=== PATIENT | male | born 1935 | race African-American/Black ===

== ENCOUNTER 2017-02-23 10:32 | Emergency (ER) | payer OTHER ==
[2017-02-23 10:42] VITALS: BP 136/66; PULSE 57; TEMP 98.7; BMI 29.0
--- NOTE | 2017-02-23 10:50 | PDOC ---
History of Present Illness - General Chief Complaint: Hematuria Stated Complaint: HEMATURIA Time Seen by Provider: 02/23/17 10:36 History Source: Patient Exam Limitations: No Limitations - History of Present Illness Travel History: No Initial Comments: 02/23/17 11:10 82y M hx of afib on coumadin, CAD s/p stents on plavix, htn, hl, presents with hematuria. pt noticed some pink urine last night, and today endorses reddish urine. pt states he 'pinched' his penis last night after urinating prior to seeing the pink urine. pt endorses some burning on urination. pt last had INR check 2 weeks ago and was2.3 no recent changes in his coumadin recently on ciprodex for ear infection but nothing PO. n oother bruisling/bleeding noted no rectal bleeding pt denies any cp, palpitations, lightheadeness, no history of instrumentation/gu problems Past History - Past Medical History Allergies/Adverse Reactions: Allergies Allergy/AdvReac Type Severity Reaction Status Date / Time VERÓNICA Inhibitors Allergy Swelling Verified 02/23/17 10:38 fish derived Allergy Itching Verified 02/23/17 10:38 shellfish derived Allergy Itching Verified 02/23/17 10:38 Home Medications: Ambulatory Orders Amiodarone HCl [Cordarone -] 200 mg PO DAILY 09/29/14 Atorvastatin Ca [Lipitor -] 40 mg PO HS 09/29/14 Clopidogrel Bisulfate [Plavix -] 75 mg PO DAILY #30 tablet 09/29/14 Isosorbide Mononitrate [Imdur] 60 mg PO DAILY 09/29/14 Metoprolol Tartrate 25 mg PO DAILY 09/29/14 Nitroglycerin Sublingual [Nitrostat -] 0.4 mg SL PRN 09/29/14 Ranolazine [Ranexa] 500 mg PO BID 09/29/14 Warfarin Sodium 2.5 mg PO HS 09/29/14 Cardiac Disorders: Yes (A-FIB, CAD) HTN: Yes Hypercholesterolemia: Yes - Psycho/Social/Smoking Cessation Hx Anxiety: No Suicidal Ideation: No Smoking History: Never smoked Have you smoked in the past 12 months: No Hx Alcohol Use: No Drug/Substance Use Hx: No Substance Use Type: None Review of Systems - Review of Systems Able to Perform ROS?: Yes Comments:: 02/23/17 11:23 Constitutional - no reported Fever, Chills, HEENT: no reported vision changes, sore throat Respiratory: no reported cough, sob, hemoptysis Cardiac: no reported chest pain, palpitations, light headedness, leg swelling Abd/GI: no reported abd pain, nausea, vomiting, blood per rectum, melena, diarrhea : +hematuria, dysuria no reported frequency, discharge Musculskelatal - no reported back pain, joint swelling skin - no reported bruising, erythema, rash neurological: no reported headache, numbness, focal weakness, tingling, ataxia, hematologic: no reported anemia, easy bruising, easy bleeding *Physical Exam - Vital Signs Last Vital Signs Temp Pulse Resp BP Pulse Ox 98.7 F 57 L 18 136/66 98 02/23/17 10:32 02/23/17 10:32 02/23/17 10:32 02/23/17 10:32 02/23/17 10:32 - Physical Exam Comments: 02/23/17 11:23 GENERAL: The patient is awake, alert, and fully oriented, Nontoxic - in no acute distress. HEAD: Normocephalic, atraumatic. EYES: extraocular movements intact, sclera anicteric, conjunctiva clear. ENT: Normal voice, Moist mucous membranes. NECK: Normal range of motion, supple LUNGS: Breath sounds equal, clear to auscultation bilaterally. No wheezes, no rhonchi, no rales. HEART: Regular rate and rhythm, normal S1 and S2 without murmur, rub or gallop. ABDOMEN: Soft, nontender, normoactive bowel sounds. No guarding, no rebound. . No CVA tenderness : uncircumcised penis, no lesions or sources of bleeding present, no blood visible EXTREMITIES: Normal range of motion, no edema. No clubbing or cyanosis. No cords, erythema, or tenderness. NEUROLOGICAL: No facial assymetry, Normal speech, PSYCH: Normal mood, normal affect. SKIN: Warm, Dry, normal turgor, Medical Decision Making - Medical Decision Making 02/23/17 12:31 will r/o UTI will ck INR for suprathetic INR *DC/Admit/Observation/Transfer Diagnosis at time of Disposition: Hematuria - Discharge Dispostion Disposition: HOME Condition at time of disposition: Improved Admit: No - Referrals Referrals: Alexei Rogers MD [Staff Physician] - - Patient Instructions Printed Discharge Instructions: DI for Hematuria Additional Instructions: Return to the emergency department immediately with ANY new, persistent or worsening symptoms. Please follow up with dr. Rogers to repeat your urine for blood. If this is persistent, you may need to follow up with a urologist. Results were discussed with you. Please make sure your doctor reviews the results of your emergency evaluation. Print Language: [id number]
[2017-02-23 11:06] LABS: PH,URINE 5.5 (4.5-8); URINE APPEARANCE Clear; URINE BILIRUBIN Negative (NEGATIVE); URINE GLUCOSE (UA) Negative (NEGATIVE); URINE KETONE Negative (NEGATIVE); URINE LEUK ESTERASE Negative (NEGATIVE); URINE NITRITE Negative (NEGATIVE); URINE PROTEIN Trace (NEGATIVE); URINE UROBILINOGEN 0.2 E.U/dl (0.2-1.0)
[2017-02-23 11:16] LABS: URINE BLOOD 3+ (NEGATIVE); URINE COLOR YELLOW
[2017-02-23 12:01] LABS: INR 2.05 (0.82-1.09); PROTHROMBIN TIME (PATIENT) 22.6 SEC (10.2-13.0)
[2017-02-23 13:15] LABS: URINE RBC 20-30 /hpf (0-3)
[2017-02-23 13:16] LABS: URINE BACTERIA NEGATIVE /hpf (NEGATIVE)
== END 2017-02-23 13:45 | disposition home or self-care (01) ==
LOC: FER 10:32
DX: R31.9 Hematuria, unspecified (principal); I10 Essential (primary) hypertension; E78.5 Hyperlipidemia, unspecified; Z79.01 Long term (current) use of anticoagulants
CPT/HCPCS: 36415; 81003; 81015; 85610; 99282-25

== ENCOUNTER 2020-11-19 16:38 | Emergency (ER) | payer OTHER ==
[2020-11-19 17:05] VITALS: BP 119/51; PULSE 48; TEMP 99.3; BMI 29.0
[2020-11-19] MEDS ORDERED: ONDANSETRON *ODT* 4 MG TABLET SL ONE (17:20)
[2020-11-19] MEDS ORDERED: LIDOCAINE 5% TOPICAL PATCH TP ONE (17:20)
[2020-11-19] MEDS ORDERED: ONDANSETRON *ODT* 4 MG TABLET ONE (17:37)
[2020-11-19] MEDS ORDERED: LIDOCAINE 5% TOPICAL PATCH ONE (17:59)
[2020-11-19] MEDS ORDERED: LIDOCAINE PATCH REMOVAL MC SCH (22:00)
== END 2020-11-19 20:58 | disposition home or self-care (01) ==
LOC: FER 16:38
DX: S22.41XA Multiple fractures of ribs, right side, initial encounter for closed fracture (principal); W19.XXXA Unspecified fall, initial encounter
CPT/HCPCS: 70450-TC; 71101-TC-RT-FY; 72125-TC; 99285-25; Q0162